=== PATIENT | male | born 1955 ===

== ENCOUNTER 2022-06-22 05:54 | Day surgery (SDC) | payer MEDICARE, BC ==
[~2022-06-22 05:54] MED LIST: Lactated Ringers 1,000 ML IV SCH; Lidocaine 1%/Sod Bicarbonate in NS 8.4% 1 ML Syringe IDERM PRN; Sodium Chloride 0.9% 10 ML Syringe FLUSH PRN; Sodium Chloride 0.9% 10 ML Syringe FLUSH SCH
[2022-06-22] MEDS ORDERED: oxyCODONE ER 10 MG TAB.ER ONE (06:02)
[2022-06-22] MEDS ORDERED: Acetaminophen 325 MG Tab ONE (06:04)
[2022-06-22] MEDS ORDERED: Pregabalin 25 MG Cap ONE (06:04)
[2022-06-22] MEDS ORDERED: Triamcinolone Acetonide 40 MG/ML 1 ML SDV ONE (06:22)
[2022-06-22] MEDS ORDERED: Vancomycin 1 GM SDV ONE (06:22)
[2022-06-22] MEDS ORDERED: Bupivacaine 0.25% 10 ML SDV ONE (06:22)
[2022-06-22] MEDS ORDERED: Propofol 200 MG/20 ML SDV ONE (06:53)
[2022-06-22] MEDS ORDERED: Midazolam 1 MG/ML 2 ML SDV ONE (06:53)
[2022-06-22] MEDS ORDERED: Lidocaine 1% 4 ML ONE (06:54)
[2022-06-22] MEDS ORDERED: Acetaminophen 325 MG Tab PO ONE (07:00)
[2022-06-22] MEDS ORDERED: Pregabalin 25 MG Cap PO ONE (07:00)
[2022-06-22] MEDS ORDERED: oxyCODONE ER 10 MG TAB.ER PO ONE (07:00)
[2022-06-22] MEDS ORDERED: ceFAZolin 2 GM Vial ONE (07:22)
[2022-06-22] MEDS ORDERED: Ondansetron 4 MG/2 ML SDV ONE (07:24)
[2022-06-22] MEDS ORDERED: Morphine 8 MG, EPINEPHrine 0.3 MG, Cefuroxime 750 MG, Ketorolac 30 MG, Sodium Chloride ... PRN ×5 (07:41)
[2022-06-22] MEDS ORDERED: Lactated Ringers 1,000 ML ONE (07:46)
[2022-06-22] MEDS ORDERED: EPINEPHrine 1 MG/ML SDV ONE (08:09)
[2022-06-22] MEDS ORDERED: Ropivacaine 0.5% 5 MG/ML 30 ML SDV ONE (08:09)
[2022-06-22] MEDS ORDERED: HYDROmorphone 0.5 MG/0.5 ML Syringe IVPUSH PRN (08:49)
[2022-06-22] MEDS ORDERED: fentaNYL 100 MCG/2 ML SDV IVPUSH PRN (08:49)
[2022-06-22] MEDS ORDERED: Ondansetron 4 MG/2 ML SDV IVPUSH PRN (08:49)
[2022-06-22] MEDS ORDERED: oxyCODONE 5 MG Tab PO PRN (09:27)
[2022-06-22 11:22] VITALS: PULSE 70
[2022-06-22 12:00] VITALS: BP 128/85
== END 2022-06-22 13:00 | disposition home or self-care (01) ==
LOC: JD.SDS 05:54
PROVIDERS: ATTEND Orthopaedic Surgery
DX: M17.0 Bilateral primary osteoarthritis of knee (principal); I10 Essential (primary) hypertension; E11.9 Type 2 diabetes mellitus without complications; G47.33 Obstructive sleep apnea (adult) (pediatric); I25.10 Atherosclerotic heart disease of native coronary artery without angina pectoris; N40.0 Benign prostatic hyperplasia without lower urinary tract symptoms; E78.00 Pure hypercholesterolemia, unspecified; Z98.890 Other specified postprocedural states
CPT/HCPCS: 0055T; 20610; 27447; 73560; 97116; 97161; A9270; C1713; C1776; J0171; J0690; J0697; J1885; J2250; J2270; J2405; J2704; J2795; J3301; J3370; J3490; J7120; 01402; 64450; 76942

== ENCOUNTER 2022-12-21 06:26 | Day surgery (SDC) | payer MEDICARE, BC ==
[~2022-12-21 06:26] MED LIST changes: +Acetaminophen 325 MG Tab PO SCH; +Morphine 8 MG, EPINEPHrine 0.3 MG, Cefuroxime 750 MG, Ketorolac 30 MG, Sodium Chloride ... PRN; +Pregabalin 25 MG Cap PO SCH; +oxyCODONE ER 10 MG TAB.ER PO SCH
[2022-12-21] MEDS ORDERED: Ondansetron 4 MG/2 ML SDV IVPUSH PRN (06:36)
[2022-12-21] MEDS ORDERED: HYDROmorphone 0.5 MG/0.5 ML Syringe IVPUSH PRN (06:36)
[2022-12-21] MEDS ORDERED: fentaNYL 100 MCG/2 ML SDV IVPUSH PRN (06:36)
[2022-12-21] MEDS ORDERED: fentaNYL 100 MCG/2 ML SDV ONE (06:41)
[2022-12-21] MEDS ORDERED: Midazolam 1 MG/ML 2 ML SDV ONE (06:41)
[2022-12-21] MEDS ORDERED: Propofol 200 MG/20 ML SDV ONE ×2 (06:42→08:07)
[2022-12-21] MEDS ORDERED: ceFAZolin 2 GM Vial ONE (06:42)
[2022-12-21] MEDS ORDERED: Lidocaine 1% 2 ML ONE (06:42)
[2022-12-21] MEDS ORDERED: Vancomycin 1 GM SDV ONE (06:47)
[2022-12-21] MEDS ORDERED: Tranexamic Acid 1,000 MG/10 ML Vial ONE (06:47)
[2022-12-21] MEDS ORDERED: Ropivacaine 0.5% 5 MG/ML 30 ML SDV ONE (06:48)
[2022-12-21] MEDS ORDERED: EPINEPHrine 1 MG/ML SDV ONE (07:32)
[2022-12-21] MEDS ORDERED: Cyclobenzaprine 10 MG Tab PO ONE (10:11)
[2022-12-21] MEDS ORDERED: oxyCODONE 5 MG Tab PO ONE (10:15)
[2022-12-21 11:24] VITALS: BP 136/88; PULSE 74
== END 2022-12-21 11:40 | disposition home or self-care (01) ==
LOC: JD.SDS 06:26
PROVIDERS: ATTEND Orthopaedic Surgery
DX: M17.12 Unilateral primary osteoarthritis, left knee (principal); I25.10 Atherosclerotic heart disease of native coronary artery without angina pectoris; N40.0 Benign prostatic hyperplasia without lower urinary tract symptoms; R94.39 Abnormal result of other cardiovascular function study; J45.909 Unspecified asthma, uncomplicated; E78.00 Pure hypercholesterolemia, unspecified; I10 Essential (primary) hypertension; E55.9 Vitamin D deficiency, unspecified; G25.81 Restless legs syndrome; E11.9 Type 2 diabetes mellitus without complications; G47.33 Obstructive sleep apnea (adult) (pediatric); Z91.048 Other nonmedicinal substance allergy status; Z79.82 Long term (current) use of aspirin; Z79.899 Other long term (current) drug therapy
CPT/HCPCS: 0555T; 27447; 64447; 73560; 82947; 97161; A9270; C1713; C1776; J0171; J0690; J0697; J1885; J2250; J2270; J2704; J2795; J3010; J3370; J7120; 01402; J3490